=== PATIENT | female | born 1970 | race Caucasian/White ===

== ENCOUNTER 2018-10-18 17:57 | Emergency (ER) | payer OTHER, BC ==
[~2018-10-18 17:57] MED LIST: ETHI1TAB25 PO; HYD2 PO; LOR75 PO; PEN250 PO; PROAIRPT IH
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
[2018-10-18 19:30] VITALS: BP 113/69
[2018-10-18] MEDS ORDERED: IBUPROFEN 800 MG TAB PO ONE (19:40)
== END 2018-10-18 19:52 | disposition home or self-care (01) ==
LOC: ER 18:18
DX: S16.1XXA Strain of muscle, fascia and tendon at neck level, initial encounter (principal); V49.60XA Unspecified car occupant injured in collision with unspecified motor vehicles in traffic accident, initial encounter
CPT/HCPCS: 70450; 72125; 99284